=== PATIENT | female | born 1990 | race Caucasian/White ===

== ENCOUNTER → 2016-10-21 | Outpatient (CLI) | payer OTHER | LOC: RAD 08:24 | DX: M25.512 Pain in left shoulder (principal) ==

== ENCOUNTER 2016-11-05 11:30 | Outpatient (RCR) | payer OTHER | END 2016-11-05 12:00 | disposition home or self-care (01) | LOC: PT 11:30 | DX: M25.512 Pain in left shoulder (principal) ==

== ENCOUNTER → 2016-12-05 | Outpatient (CLI) | payer OTHER | LOC: PT 08:52 | DX: M75.22 Bicipital tendinitis, left shoulder (principal) ==

== ENCOUNTER 2017-01-22 13:00 | Outpatient (RCR) | payer OTHER | END 2017-01-22 13:30 | disposition home or self-care (01) | LOC: PT 13:00 | DX: Z47.89 Encounter for other orthopedic aftercare (principal) ==

== ENCOUNTER → 2020-05-02 | Outpatient (CLI) | payer BC | LOC: RAD 08:00 | DX: M25.551 Pain in right hip (principal) ==

== ENCOUNTER → 2024-05-27 | Outpatient (CLI) | payer BC ==
[2024-05-27 22:54] LABS: IMMUNOGLOBULIN E, TOTAL 103 IU/mL (0-100)
[2024-05-27 23:10] LABS: FOLATE (FOLIC ACID) 6.6 ng/mL (2.0-20.0)
[2024-05-28 11:35] LABS: ANA SCREEN with REFLEX Negative (Negative)
[2024-05-30 15:10] LABS: KAPPA LAMBDA RATIO 0.89 (())
[2024-05-30 20:08] LABS: ANTI-CYC CITRULLINATED PEPT AB 6 units (0-19)
[2024-05-31 19:08] LABS: A/G RATIO (PEP) 1.5 (0.7-1.7); BETA GLOBULINS (PEP) 0.9 g/dL (0.7-1.3)
[2024-06-01 23:24] LABS: IGM,SERUM 84 mg/dL (33-293); IMMUNOGLOBULIN A 405 mg/dL (65-421); IMMUNOGLOBULIN G 847 mg/dL (552-1631)
== END ==
LOC: LAB 16:13
PROVIDERS: Internal Medicine
DX: J45.41 Moderate persistent asthma with (acute) exacerbation (principal); K90.9 Intestinal malabsorption, unspecified; J98.8 Other specified respiratory disorders

== ENCOUNTER → 2024-06-10 | Outpatient (CLI) | payer BC ==
[2024-06-10 13:22] LABS: BASO # 0.02 K/mm3 (0.02-0.10); EOS % 1.3 % (1.0-5.0); HEMATOCRIT 39.8 % (37.0-47.0); LYMPH# 1.78 K/mm3 (1.50-4.00); MEAN CELL VOLUME 90 fl (78-100); MEAN CORPUSCULAR HEMOGLOBIN 29 pg (27-31); MEAN CORPUSCULAR HGB CONC 33 g/dL (33-37); MEAN PLATELET VOLUME 9.3 fl (7.4-10.4); MONO # 0.38 K/mm3 (0.20-0.80); NEU # 5.34 K/mm3 (1.40-6.50); PLATELET COUNT 244 K/mm3 (130-400); RED BLOOD COUNT 4.42 M/mm3 (4.10-5.30); RED CELL DISTRIBUTION WIDTH 12.6 % (11.5-14.5); WHITE BLOOD COUNT 7.6 K/mm3 (4.8-10.8)
== END ==
LOC: RAD 12:56
PROVIDERS: Internal Medicine
DX: R04.2 Hemoptysis (principal)